=== PATIENT | female | born 2000 | race African-American/Black ===

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

== ENCOUNTER 2021-02-01 14:11 | Emergency (ER) | payer OTHER ==
[2021-02-01 14:35] VITALS: TEMP 98.1
[2021-02-01 15:34] LABS: Basophils % (A) 1 %; Eosinophils # (A) 0.1 k/uL (0-0.7); Eosinophils % (A) 1 %; HCT 46.4 % (34.0-46.0); HGB 15.4 gm/dL (11.4-16.0); Lymphocytes # (A) 2.8 k/uL (1.0-4.8); Lymphocytes % (A) 37 %; MCH 33.8 pg (25.0-35.0); MCHC 33.1 g/dL (31.0-37.0); MCV 102.1 fL (80.0-100.0); Macrocytosis Slight; Mean Platelet Volume 7.9; Monocytes # (A) 0.4 k/uL (0-1.0); Monocytes % (A) 6 %; Neutrophils % (A) 53 %; Platelet Count 244 k/uL (150-450); RBC 4.54 m/uL (3.80-5.40); RDW 12.6 % (11.5-15.5); WBC 7.6 k/uL (4.0-11.0)
[2021-02-01 15:43] LABS: ALT 14 U/L (4-34); AST 21 U/L (14-36); African American GFR (CKD) >90 (>60 ml/min/1.73 sqM); Albumin 4.4 g/dL (3.5-5.0); Alkaline Phosphatase 61 U/L (38-126); Amylase 92 U/L (30-110); Anion Gap 9 mmol/L; Blood Urea Nitrogen 11 mg/dL (7-17); Calcium 9.7 mg/dL (8.4-10.2); Carbon Dioxide 24 mmol/L (22-30); Chloride 104 mmol/L (98-107); Glucose 77 mg/dL (74-99); Lipase 79 U/L (23-300); Magnesium 1.8 mg/dL (1.6-2.3); Non-African American GFR(CKD) >90 (>60 ml/min/1.73 sqM); Potassium 3.9 mmol/L (3.5-5.1); Sodium 137 mmol/L (137-145); Total Bilirubin 1.3 mg/dL (0.2-1.3); Total Protein 7.3 g/dL (6.3-8.2)
[2021-02-01 16:21] LABS: Appearance,Urine Cloudy (Clear); Bacteria,Urine Rare /hpf; Bilirubin,Urine Negative (Negative); Blood,Urine Small (Negative); Color,Urine Yellow; Glucose,Urine (UA) Negative (Negative); Ketones,Urine 1+ (Negative); Leukocyte Esterase,Urine Negative (Negative); Mucus,Urine Many /hpf; Nitrite,Urine Negative (Negative); PH, Urine 6.5 (5.0-8.0); Protein,Urine Trace (Negative); RBC,Urine <1 /hpf (0-5); Specific Gravity,Urine 1.029 (1.001-1.035); Squamous Epithelial Cell,Urine 16 /hpf (0-4); WBC,Urine 3 /hpf (0-5)
--- NOTE | 2021-02-01 16:53 | ED ---
General Adult HPI - General Chief complaint: Abdominal Pain Stated complaint: R side pain Time Seen by Provider: 02/01/21 14:44 Source: patient, RN notes reviewed Mode of arrival: ambulatory Limitations: no limitations - History of Present Illness Initial comments: 19-year-old female presents to the emergency room for a chief complaint of numbness. Patient states that she is to have abdominal pain and left upper quadrant. Patient was seen by [facility]. Patient states the pain has since resolved however she now has numbness over her abdomen. She also has numbness in her mouth and of both great toes of her feet. Patient denies a ny weakness. Denies any difficulty talking. Denies headaches.Patient has no other complaints at this time including shortness of breath, chest pain, abdominal pain, nausea or vomiting, headache, or visual changes. - Related Data Home Medications Medication Instructions Recorded Confirmed Citalopram Hydrobromide 40 mg PO DAILY@1300 05/02/19 10/19/19 [Citalopram HBr] Omeprazole [PriLOSEC] 40 mg PO DAILY PRN 05/02/19 10/19/19 Etonogestrel/Ethinyl Estradiol 1 each VG DIRECTED 10/19/19 10/19/19 [Nuvaring Vaginal Ring] Multivitamin [Multivitamins Adult 4 each PO DAILY 10/19/19 10/19/19 Gummies] busPIRone HCL 10 mg PO DAILY@1300 10/19/19 10/19/19 Previous Rx's Medication Instructions Recorded Cyclobenzaprine [Flexeril] 5 mg PO BID #10 tablet 12/14/20 Ibuprofen [Motrin] 400 mg PO Q6HR PRN #30 tab 12/14/20 Allergies Allergy/AdvReac Type Severity Reaction Status Date / Time No Known Allergies Allergy Verified 12/14/20 14:03 Review of Systems ROS Statement: Those systems with pertinent positive or pertinent negative responses have been documented in the HPI. ROS Other: All systems not noted in ROS Statement are negative. Past Medical History Past Medical History: Blood Disorder Additional Past Medical History / Comment(s): Hx anemia. H-pylori 04/2019. Abd pain, Nausea, constipation. Scrapes on arms, hands, "I pick at my skin." History of Any Multi-Drug Resistant Organisms: None Reported Past Surgical History: Tonsillectomy Past Anesthesia/Blood Transfusion Reactions: No Reported Reaction Past Psychological History: Anxiety, Depression Smoking Status: Vaper Past Alcohol Use History: None Reported Past Drug Use History: Marijuana - Past Family History Mother Additional Family Medical History / Comment(s): Brain aneurysm General Exam Limitations: no limitations General appearance: alert, in no apparent distress Head exam: Present: atraumatic Eye exam: Present: normal appearance, PERRL, EOMI. Absent: scleral icterus, conjunctival injection ENT exam: Present: normal exam, mucous membranes moist Neck exam: Present: normal inspection, full ROM. Absent: tenderness Respiratory exam: Present: normal lung sounds bilaterally. Absent: respiratory distress, wheezes Cardiovascular Exam: Present: regular rate, normal rhythm, normal heart sounds GI/Abdominal exam: Present: soft, normal bowel sounds. Absent: distended, tenderness Neurological exam: Present: alert, oriented X3, normal gait Expanded Patient oriented to: Present: person, place, time Speech: Present: fluid speech Cranial nerves: EOM's Intact: Normal, Tongue Deviation: Normal, Facial Sensation: Normal Upper motor neuron: Pronator Drift: Normal Sensory exam: Upper Extremity Light Touch: Normal, Upper Extremity Pin Prick: Normal, Lower Extremity Light Touch: Normal, Lower Extremity Pin Prick: Normal Motor strength exam: RUE: 5, LUE: 5, RLE: 5, LLE: 5 Eye Response: (4) open spontaneously Motor Response: (6) obeys commands Verbal Response: (5) oriented [place] Total: 15 Course Vital Signs 02/01/21 14:31 Temperature 98.1 F Pulse Rate 86 Respiratory 18 Rate Blood Pressure 103/67 O2 Sat by Pulse 99 Oximetry Medical Decision Making - Medical Decision Making Vitals are stable. Patient presents for tingling of the mouth abdomen and great toes. Patient denies any weakness in any extremities. Strength 5 out of 5 in bilateral upper and lower extremities. No facial palsy. Laboratory evaluation was obtained to check for electrolyte abnormalities which were normal. At this time patient likely experiencing paresthesias. Recommend that she follow up with her doctor as she is stable for discharge home. She should return here for any worsening symptoms. - Lab Data Result diagrams: 02/01/21 15:27 02/01/21 15:27 Lab Results 02/01/21 02/01/21 02/01/21 Range/Units 15:27 15:27 15:27 WBC 7.6 (4.0-11.0) k/uL RBC 4.54 (3.80-5.40) m/uL Hgb 15.4 (11.4-16.0) gm/dL Hct 46.4 H (34.0-46.0) % MCV 102.1 H (80.0-100.0) fL MCH 33.8 (25.0-35.0) pg MCHC 33.1 (31.0-37.0) g/dL RDW 12.6 (11.5-15.5) % Plt Count 244 (150-450) k/uL MPV 7.9 Neutrophils % 53 % Lymphocytes % 37 % Monocytes % 6 % Eosinophils % 1 % Basophils % 1 % Neutrophils # 4.0 (1.3-7.7) k/uL Lymphocytes # 2.8 (1.0-4.8) k/uL Monocytes # 0.4 (0-1.0) k/uL Eosinophils # 0.1 (0-0.7) k/uL Basophils # 0.0 (0-0.2) k/uL Macrocytosis Slight Sodium (137-145) mmol/L Potassium (3.5-5.1) mmol/L Chloride (98-107) mmol/L Carbon Dioxide (22-30) mmol/L Anion Gap mmol/L BUN (7-17) mg/dL Creatinine (0.52-1.04) mg/dL Est GFR (CKD-EPI)AfAm (>60 ml/min/1.73 sqM) Est GFR (CKD-EPI)NonAf (>60 ml/min/1.73 sqM) Glucose (74-99) mg/dL Calcium (8.4-10.2) mg/dL Magnesium (1.6-2.3) mg/dL Total Bilirubin (0.2-1.3) mg/dL AST (14-36) U/L ALT (4-34) U/L Alkaline Phosphatase (38-126) U/L Total Protein (6.3-8.2) g/dL Albumin (3.5-5.0) g/dL Amylase (30-110) U/L Lipase (23-300) U/L Urine Color Yellow Urine Appearance Cloudy H (Clear) Urine pH 6.5 (5.0-8.0) Ur Specific [place] 1.029 (1.001-1.035) Urine Protein Trace H (Negative) Urine Glucose (UA) Negative (Negative) Urine Ketones 1+ H (Negative) Urine Blood Small H (Negative) Urine Nitrite Negative (Negative) Urine Bilirubin Negative (Negative) Urine Urobilinogen 2.0 (<2.0) mg/dL Ur Leukocyte Esterase Negative (Negative) Urine RBC <1 (0-5) /hpf Urine WBC 3 (0-5) /hpf Ur Squamous Epith Cells 16 H (0-4) /hpf Urine Bacteria Rare H (None) /hpf Urine Mucus Many H (None) /hpf Urine HCG, Qual Not Detected (Not Detectd) 02/01/21 Range/Units 15:27 WBC (4.0-11.0) k/uL RBC (3.80-5.40) m/uL Hgb (11.4-16.0) gm/dL Hct (34.0-46.0) % MCV (80.0-100.0) fL MCH (25.0-35.0) pg MCHC (31.0-37.0) g/dL RDW (11.5-15.5) % Plt Count (150-450) k/uL MPV Neutrophils % % Lymphocytes % % Monocytes % % Eosinophils % % Basophils % % Neutrophils # (1.3-7.7) k/uL Lymphocytes # (1.0-4.8) k/uL Monocytes # (0-1.0) k/uL Eosinophils # (0-0.7) k/uL Basophils # (0-0.2) k/uL Macrocytosis Sodium 137 (137-145) mmol/L Potassium 3.9 (3.5-5.1) mmol/L Chloride 104 (98-107) mmol/L Carbon Dioxide 24 (22-30) mmol/L Anion Gap 9 mmol/L BUN 11 (7-17) mg/dL Creatinine 0.64 (0.52-1.04) mg/dL Est GFR (CKD-EPI)AfAm >90 (>60 ml/min/1.73 sqM) Est GFR (CKD-EPI)NonAf >90 (>60 ml/min/1.73 sqM) Glucose 77 (74-99) mg/dL Calcium 9.7 (8.4-10.2) mg/dL Magnesium 1.8 (1.6-2.3) mg/dL Total Bilirubin 1.3 (0.2-1.3) mg/dL AST 21 (14-36) U/L ALT 14 (4-34) U/L Alkaline Phosphatase 61 (38-126) U/L Total Protein 7.3 (6.3-8.2) g/dL Albumin 4.4 (3.5-5.0) g/dL Amylase 92 (30-110) U/L Lipase 79 (23-300) U/L Urine Color Urine Appearance (Clear) Urine pH (5.0-8.0) Ur Specific [place] (1.001-1.035) Urine Protein (Negative) Urine Glucose (UA) (Negative) Urine Ketones (Negative) Urine Blood (Negative) Urine Nitrite (Negative) Urine Bilirubin (Negative) Urine Urobilinogen (<2.0) mg/dL Ur Leukocyte Esterase (Negative) Urine RBC (0-5) /hpf Urine WBC (0-5) /hpf Ur Squamous Epith Cells (0-4) /hpf Urine Bacteria (None) /hpf Urine Mucus (None) /hpf Urine HCG, Qual (Not Detectd) Disposition Clinical Impression: Paresthesia Disposition: HOME SELF-CARE Condition: Good Instructions (If sedation given, give patient instructions): Paresthesia (ED) Additional Instructions: Please follow up with your doctor in one to 2 days. Return to the emergency room for any worsening symptoms. Is patient prescribed a controlled substance at d/c from ED?: No Referrals: Carlyle Dutton DO [Primary Care Provider] - 1-2 days Time of Disposition: 16:52
[2021-02-01 17:30] VITALS: BP 106/54; PULSE 77; RESP 20
== END 2021-02-01 17:30 | disposition home or self-care (01) ==
LOC: EC 14:11
DX: R20.2 Paresthesia of skin (principal); R10.12 Left upper quadrant pain; R20.0 Anesthesia of skin; F32.9 Major depressive disorder, single episode, unspecified; F41.9 Anxiety disorder, unspecified; F12.90 Cannabis use, unspecified, uncomplicated; F17.290 Nicotine dependence, other tobacco product, uncomplicated; Z79.1 Long term (current) use of non-steroidal anti-inflammatories (NSAID); Z79.3 Long term (current) use of hormonal contraceptives; Z79.899 Other long term (current) drug therapy
CPT/HCPCS: 36415; 80053; 81001; 81025; 82150; 83690; 83735; 85025; 99284

== ENCOUNTER 2021-02-12 15:08 | Emergency (ER) | payer OTHER ==
[2021-02-12 15:34] VITALS: BP 122/77; PULSE 105; RESP 18; TEMP 98.5
[2021-02-12] MEDS ORDERED: BACITRACIN OINT 1 EACH PACKET TOPICAL ONE (16:08)
[2021-02-12] MEDS ORDERED: LIDOCAINE 1% INJ 10MG/ML (20 ML MDV) SQ ONE (16:08)
--- NOTE | 2021-02-12 17:22 | ED ---
Wound/Laceration HPI - General Chief Complaint: Wound/Laceration Stated Complaint: IHS R Finger Lac Time Seen by Provider: 02/12/21 15:36 Source: patient Mode of arrival: ambulatory Limitations: no limitations - History of Present Illness Initial Comments: Patient is a 20-year-old female presenting to emergency Department with complaints of a laceration to her right ring finger that happened a few hours prior to arrival. 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 She has a laceration noted to the dorsal aspect of the right ring finger. There is bleeding when bandage is taken off, it is controlled with pressure in the bandage. She denies history of blood thinners. Her tetanus vaccine is up-to-date. She has no further complaints. - Related Data Home Medications Medication Instructions Recorded Confirmed Citalopram Hydrobromide 40 mg PO DAILY@1300 05/02/19 10/19/19 [Citalopram HBr] Omeprazole [PriLOSEC] 40 mg PO DAILY PRN 05/02/19 10/19/19 Etonogestrel/Ethinyl Estradiol 1 each VG DIRECTED 10/19/19 10/19/19 [Nuvaring Vaginal Ring] Multivitamin [Multivitamins Adult 4 each PO DAILY 10/19/19 10/19/19 Gummies] busPIRone HCL 10 mg PO DAILY@1300 10/19/19 10/19/19 Previous Rx's Medication Instructions Recorded Cyclobenzaprine [Flexeril] 5 mg PO BID #10 tablet 12/14/20 Ibuprofen [Motrin] 400 mg PO Q6HR PRN #30 tab 12/14/20 Allergies Allergy/AdvReac Type Severity Reaction Status Date / Time No Known Allergies Allergy Verified 02/12/21 15:34 Review of Systems ROS Statement: Those systems with pertinent positive or pertinent negative responses have been documented in the HPI. ROS Other: All systems not noted in ROS Statement are negative. Past Medical History Past Medical History: Blood Disorder Additional Past Medical History / Comment(s): Hx anemia. H-pylori 04/2019. Abd pain, Nausea, constipation. Scrapes on arms, hands, "I pick at my skin." History of Any Multi-Drug Resistant Organisms: None Reported Past Surgical History: Tonsillectomy Past Anesthesia/Blood Transfusion Reactions: No Reported Reaction Past Psychological History: Anxiety, Depression Smoking Status: Vaper Past Alcohol Use History: None Reported Past Drug Use History: Marijuana - Past Family History Mother Additional Family Medical History / Comment(s): Brain aneurysm General Exam - General Exam Comments Initial Comments: GENERAL: Patient is well-developed and well-nourished. Patient is nontoxic and in no acute distress. HEAD: Atraumatic, normocephalic. EYES: Pupils equal round and reactive to light, extraocular movements intact, sclera anicteric, conjunctiva are normal. Eyelids were unremarkable. LUNGS: Unlabored respirations. Breath sounds clear to auscultation bilaterally and equal. No wheezes rales or rhonchi. HEART: Regular rate and rhythm without murmurs, rubs or gallops. ABDOMEN: Soft, nontender, normoactive bowel sounds. MUSCULOSKELETAL: Patient has full range of motion including full extension and flexion of her right fingers. His neurovascular intact. Sensation is equal and bilateral, all fingers. No clubbing or cyanosis. NEUROLOGICAL: Patient is alert and oriented x 3. SKIN: Warm, Dry, normal turgor. Patient has a 3 cm laceration to the dorsal aspect of the right ring finger, over the IP joint. There is active bleeding when bandage is removed, it is controlled with pressure and bandage. Limitations: no limitations Course Vital Signs 02/12/21 15:31 Temperature 98.5 F Pulse Rate 105 H Respiratory 18 Rate Blood Pressure 122/77 O2 Sat by Pulse 98 Oximetry Procedures - Laceration Laceration #1 Consent Obtained: verbal consent Indication: laceration Site: hand (Right ring finger, dorsal aspect) Size (cm): 3 Description: linear Depth: simple, single layer Anesthetic Used: lidocaine 1% Anesthesia Technique: local infiltration Amount (mls): 3 Pre-repair: irrigated extensively Type of Sutures: nylon Size of Sutures: 5-0 Number of Sutures: 7 Technique: simple, interrupted Patient Tolerated Procedure: well Medical Decision Making - Medical Decision Making Patient is a 20-year-old female here with a 3 cm laceration to the dorsal aspect of the right ring finger, she did this at work about 2 hours prior to arrival. Tetanus vaccine is up-to-date. Patient's wound was cleaned, closed with 7, 5-0 sutures. She tolerated procedure well. Patient is stable for discharge. She has sutures removed in 7-10 days. She is to avoid heavy lifting/gripping. Case discussed with Dr. Gregorio. Disposition Clinical Impression: Laceration of right ring finger Disposition: HOME SELF-CARE Condition: Stable Instructions (If sedation given, give patient instructions): Care For Your Stitches (ED) Additional Instructions: Please return to the Emergency Department if symptoms worsen or any other concerns. Keep bandage in place until tomorrow. You may wash your hands as normal with mild soap and water. Stitches need to be removed in 7-10 days, you may come back to the ER for removal. No heavy lifting or gripping with right hand. Is patient prescribed a controlled substance at d/c from ED?: No Referrals: Carlyle Dutton DO [Primary Care Provider] - 1-2 days Time of Disposition: 17:21
== END 2021-02-12 17:28 | disposition home or self-care (01) ==
LOC: EC 15:08
DX: S61.214A Laceration without foreign body of right ring finger without damage to nail, initial encounter (principal); F41.9 Anxiety disorder, unspecified; F32.9 Major depressive disorder, single episode, unspecified; F17.290 Nicotine dependence, other tobacco product, uncomplicated; F12.90 Cannabis use, unspecified, uncomplicated; Z90.89 Acquired absence of other organs; W26.8XXA Contact with other sharp object(s), not elsewhere classified, initial encounter
CPT/HCPCS: 99282; 12002; J2001

== ENCOUNTER → 2022-06-29 | Outpatient (CLI) | payer OTHER ==
--- NOTE | 2022-06-30 09:39 | US ---
EXAMINATION TYPE: US pelvic complete DATE OF EXAM: 06/29/2022 COMPARISON: NONE CLINICAL HISTORY: 22-year-old female N83.291 OVARIAN CYST RT SIDE. Patient states going to a [facility] x 2 weeks ago and right ovarian cyst was visualized. No pain. R/O other cysts. TECHNIQUE: Transabdominal sonographic images of the pelvis were acquired. Transvaginal sonographic i mages were deferred due to menstrual status Date of LMP: 06/27/2022, G0 FINDINGS: EXAM MEASUREMENTS: Uterus: 7.0 x 4.4 x 3.2 cm Endometrial Stripe: 0.3 cm Right Ovary: 4.3 x 4.6 x 3.3 cm for volume of 34.2 mL Left Ovary: 3.9 x 1.7 x 1.9 cm for volume of 5.0 mL 1. Uterus: Anteverted and otherwise wnl 2. Endometrium: wnl 3. Right Ovary: Either 2 adjacent cysts or a septated cyst, largest = 2.7 x 3.7 x 3.1 cm with photography intern al echoes. The second cystic locule measures 2.5 x 1.7 x 1.4 cm 4. Left Ovary: Multiple tiny follicles seen 5. Bilateral Adnexa: wnl 6. Posterior cul-de-sac: no free fluid IMPRESSION: 1. Either 2 adjacent cysts or a mildly complex, septated cyst of the right ovary, largest cystic locu le measuring 3.7 cm. Follow-up in 6-8 weeks to reassess. If the finding persists, a cystic epithelial ovarian neoplasm would not be excluded from the differential. 2. Numerous small follicles within the left ovary.
== END | disposition home or self-care (01) ==
LOC: RADUSWWP 16:19
PROVIDERS: ATTEND Family Medicine
DX: N83.291 Other ovarian cyst, right side (principal)
CPT/HCPCS: 76856

== ENCOUNTER → 2023-03-25 | Outpatient (CLI) | payer OTHER ==
--- NOTE | 2023-03-25 08:08 | US ---
EXAMINATION TYPE: US abdomen complete DATE OF EXAM: 03/25/2023 COMPARISON: NONE CLINICAL INDICATION: Female, 22 years old with history of R10.9 ABD PAIN; nausea x a few weeks, 1 epi sode of vomiting, bloating. Pt. has gastritis TECHNIQUE: Multiple sonographic images of the abdomen are obtained. 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 The intrahepatic portion of the IVC and proximal abdominal aorta are within normal limits. There is no evidence of cholelithiasis. Common bile duct is unremarkable. The visu alized portions of the pancreas are homogenous. The spleen is unremarkable. Kidneys are symmetric a nd free of hydronephrosis. No renal lesions are seen. IMPRESSION: No evidence for acute process.
== END | disposition home or self-care (01) ==
LOC: RADUSWWP 06:54
PROVIDERS: ATTEND Family Medicine
DX: R10.9 Unspecified abdominal pain (principal); R11.2 Nausea with vomiting, unspecified
CPT/HCPCS: 76700

== ENCOUNTER 2024-12-21 06:50 | Emergency (ER) | payer OTHER ==
[2024-12-21 07:05] VITALS: RESP 16; TEMP 98
--- NOTE | 2024-12-21 07:24 | ED ---
General Adult HPI - General Chief complaint: Abdominal Pain Stated complaint: Abd Pain Time Seen by Provider: 12/21/24 07:00 Source: patient, RN notes reviewed Mode of arrival: ambulatory Limitations: no limitations - History of Present Illness Initial comments: This is a 24-year-old female with no pertinent past medical conditions presenting to emergency room with complaints of right lower pelvic pain that has been ongoing over the past 6 days. Patient states that on she had light vaginal spotting and she had 3 positive at-home tests on Wednesday. States that she has been having right lower pelvic pain since Wednesday that has been worsening over the past day. She denies vaginal bleeding, vaginal discharge, dysuria, hematuria, increased urinary frequency or urgency, diarrhea or constipation. last menstrual period reported on 11/17/24 - Related Data Home Medications Medication Instructions Recorded Confirmed Citalopram Hydrobromide 40 mg PO DAILY@1300 05/02/19 10/19/19 [Citalopram HBr] Omeprazole [PriLOSEC] 40 mg PO DAILY PRN 05/02/19 10/19/19 Etonogestrel/Ethinyl Estradiol 1 each VG DIRECTED 10/19/19 10/19/19 [Nuvaring Vaginal Ring] Multivitamin [Multivitamins Adult 4 each PO DAILY 10/19/19 10/19/19 Gummies] busPIRone HCL 10 mg PO DAILY@1300 10/19/19 10/19/19 Previous Rx's Medication Instructions Recorded Cyclobenzaprine [Flexeril] 5 mg PO BID #10 tablet 12/14/20 Ibuprofen [Motrin] 400 mg PO Q6HR PRN #30 tab 12/14/20 Allergies Allergy/AdvReac Type Severity Reaction Status Date / Time No Known Allergies Allergy Verified 12/21/24 07:04 Review of Systems ROS Statement: Those systems with pertinent positive or pertinent negative responses have been documented in the HPI. ROS Other: All systems not noted in ROS Statement are negative. Past Medical History Past Medical History: Blood Disorder Additional Past Medical History / Comment(s): Hx anemia. H-pylori 04/2019. Abd pain, Nausea, constipation. Scrapes on arms, hands, "I pick at my skin." History of Any Multi-Drug Resistant Organisms: None Reported Past Surgical History: Tonsillectomy Past Anesthesia/Blood Transfusion Reactions: No Reported Reaction Past Psychological History: Anxiety, Depression Smoking Status: Vaper Past Alcohol Use History: None Reported Past Drug Use History: Marijuana - Past Family History Mother Additional Family Medical History / Comment(s): Brain aneurysm General Exam Limitations: no limitations Respiratory exam: Present: normal lung sounds bilaterally. Absent: respiratory distress, wheezes, rales, rhonchi, stridor Cardiovascular Exam: Present: regular rate, normal rhythm, normal heart sounds. Absent: systolic murmur, diastolic murmur, rubs, gallop, clicks GI/Abdominal exam: Present: soft, tenderness (right lower pelvic to palpation), normal bowel sounds. Absent: distended, guarding, rebound, rigid Extremities exam: Present: normal inspection, full ROM, normal capillary refill. Absent: tenderness, pedal edema, joint swelling, calf tenderness Back exam: Present: normal inspection. Absent: CVA tenderness (R), CVA tenderness (L) Course Vital Signs 12/21/24 12/21/24 07:00 09:39 Temperature 98 F 98 F Pulse Rate 89 86 Respiratory 16 16 Rate Blood Pressure 118/76 112/74 O2 Sat by Pulse 100 100 Oximetry Medical Decision Making - Medical Decision Making Was pt. sent in by a medical professional or institution (, PA, FISHING ROD ASSEMBLER, urgent care, hospital, or fpc...) When possible be specific @ -No Did you speak to anyone other than the patient for history (EMS, parent, family, police, friend...)? What history was obtained from this source @ -No Did you review nursing and triage notes (agree or disagree)? Why? @ -I reviewed and agree with nursing and triage notes Were old charts reviewed (outside hosp., previous admission, EMS record, old EKG, old radiological studies, urgent care reports/EKG's, fpc records)? Report findings @ -No old charts were reviewed Differential Diagnosis (chest pain, altered mental status, abdominal pain women, abdominal pain men, vaginal bleeding, weakness, fever, dyspnea, syncope, headache, dizziness, GI bleed, back pain, seizure, CVA, palpatations, mental health, musculoskeletal)? @ -Differential Abdominal Pain Women: Appendicitis, Cholecystitis, diverticulosis, ischemic bowel, pancreatitis, hepatitis, UTI, gastroenteritis, AAA, incarcerated hernia, bowel obstruction, constipation, inflammatory bowel, hepatitis, peptic ulcer disease, splenic infarction, perforated viscus, vulvitis, ovarian torsion, PID, kidney stone, placenta abruption, this is not meant to be an all-inclusive list EKG interpreted by me (3pts min.). @ none X-rays interpreted by me (1pt min.). @ -None done CT interpreted by me (1pt min.). @ -None done U/S interpreted by me (1pt. min.). @ -Transabdominal ultrasound reveals small and I like intrauterine cystic structure without evidence of yolk sac or pole thought to represent early gestational sac however cannot rule out abnormal intrauterine or ectopic. What testing was considered but not performed or refused? (CT, X-rays, U/S, labs)? Why? @ -None What meds were considered but not given or refused? Why? @ -None Did you discuss the management of the patient with other professionals (professionals i.e. , PA, FISHING ROD ASSEMBLER, lab, RT, psych nurse, family welfare social work professor, assembly line brazer, teacher, security flex officer, telephonic case manager)? Give summary @ -No Was smoking cessation discussed for >3mins.? @ -No Was critical care preformed (if so, how long)? @ -No Were there social determinants of health that impacted care today? How? (Homelessness, low income, unemployed, alcoholism, drug addiction, transportation, low edu. Level, literacy, decrease access to med. care, residential, rehab)? @ -No Was there de-escalation of care discussed even if they declined (Discuss DNR or withdrawal of care, Hospice)? DNR status @ -No What co-morbidities impacted this encounter? (DM, HTN, Smoking, COPD, CAD, Cancer, CVA, ARF, Chemo, Hep., AIDS, mental health diagnosis, sleep apnea, morbid obesity)? @ -None Was patient admitted / discharged? Hospital course, mention meds given and route, prescriptions, significant lab abnormalities, going to OR and other pertinent info. @ -discharged. 24 year old female presenting to the emergency department complaints of right lower pelvic pain and positive test last week. Patient has tenderness to the right lower pelvic area, no tenderness over McBurney's point and negative psoas sign. Patient's labs reveal a hCG quantitative level of 1032. Urinalysis reveals no signs of infection. Ultrasound at this time is essentially conclusive revealing a intrauterine cystic structure without evidence of yolk sac or pole. Patient is provided with a prescription to repeat hCG testing in 48 hours recommend repeat ultrasound in 7 to 10 days. Patient provided with OB follow-up. Patient's blood type is O+. Return parameters discussed. Case discussed with my attending Dr. Sheppard. Undiagnosed new problem with uncertain prognosis? @ -No Drug Therapy requiring intensive monitoring for toxicity (Heparin, Nitro, Insulin, Cardizem)? @ -No Were any procedures done? @ -No Diagnosis/symptom? @ -early , pelvic pain Acute, or Chronic, or Acute on Chronic? @ -acute Uncomplicated (without systemic symptoms) or Complicated (systemic symptoms)? @ -uncomplicated Side effects of treatment? @ -No Exacerbation, Progression, or Severe Exacerbation? @ -No Poses a threat to life or bodily function? How? (Chest pain, USA, NH, pneumonia, PE, COPD, DKA, ARF, appy, cholecystitis, CVA, Diverticulitis, Homicidal, Suicidal, threat to staff... and all critical care pts) @ -No - Lab Data Result diagrams: 12/21/24 07:26 12/21/24 07:26 Lab Results 12/21/24 12/21/24 12/21/24 Range/Units 07:17 07:26 07:26 WBC 11.28 H (4.50-10.00) 10*3/uL RBC 3.99 L (4.10-5.20) 10*6/uL Hgb 13.1 (12.0-15.0) g/dL Hct 37.7 (37.2-46.3) % MCV 94.5 (80.0-97.0) fL MCH 32.8 H (27.0-32.0) pg MCHC 34.7 (32.0-37.0) g/dL Plt Count 287 (140-440) 10*3/uL MPV 10.1 (9.5-12.2) fL Immature Gran % (Auto) 0.4 % Neutrophils % 69.1 % Lymphocytes % 20.6 % Monocytes % 8.8 % Eosinophils % 0.7 % Basophils % 0.4 % Immature Gran # 0.04 (0.00-0.04) 10*3/uL Neutrophils # 7.80 H (1.80-7.70) 10*3/uL Lymphocytes # 2.32 (0.90-5.00) 10*3/uL Monocytes # 0.99 (0.20-1.00) 10*3/uL Eosinophils # 0.08 (0.04-0.35) 10*3/uL Basophils # 0.05 (0.00-0.10) 10*3/uL Sodium 138 (137-145) mmol/L Potassium 3.6 (3.5-5.1) mmol/L Chloride 106 (98-107) mmol/L Carbon Dioxide 24 (22-30) mmol/L Anion Gap 8 mmol/L BUN 14 (7-17) mg/dL Creatinine 0.58 (0.52-1.04) mg/dL Est GFR (CKD-EPI)AfAm >90 (>60 ml/min/1.73 sqM) Est GFR (CKD-EPI)NonAf >90 (>60 ml/min/1.73 sqM) Glucose 87 (74-99) mg/dL Calcium 8.9 (8.4-10.2) mg/dL Total Bilirubin 0.8 (0.2-1.3) mg/dL AST 19 (14-36) U/L ALT 12 (4-34) U/L Alkaline Phosphatase 56 (38-126) U/L Total Protein 6.9 (6.3-8.2) g/dL Albumin 4.1 (3.5-5.0) g/dL HCG, Quant 1032.5 mIU/mL Urine Color Colorless Urine Appearance Cloudy H (Clear) Urine pH 5.5 (5.0-8.0) Ur Specific [place] 1.015 (1.001-1.035) Urine Protein Negative (Negative) Urine Glucose (UA) Negative (Negative) Urine Ketones Negative (Negative) Urine Blood Negative (Negative) Urine Nitrite Negative (Negative) Urine Bilirubin Negative (Negative) Urine Urobilinogen <2.0 (<2.0) mg/dL Ur Leukocyte Esterase Negative (Negative) Urine RBC <1 (0-5) /hpf Urine WBC 2 (0-5) /hpf Ur Squamous Epith Cells 4 (0-4) /hpf Urine Bacteria Occasional H (None) /hpf Urine Mucus Rare H (None) /hpf Blood Type Blood Type Confirm Blood Type Recheck Bld Type Recheck Status 07/17/25 07/17/25 Range/Units 07:32 07:32 WBC (4.50-10.00) 10*3/uL RBC (4.10-5.20) 10*6/uL Hgb (12.0-15.0) g/dL Hct (37.2-46.3) % MCV (80.0-97.0) fL MCH (27.0-32.0) pg MCHC (32.0-37.0) g/dL Plt Count (140-440) 10*3/uL MPV (9.5-12.2) fL Immature Gran % (Auto) % Neutrophils % % Lymphocytes % % Monocytes % % Eosinophils % % Basophils % % Immature Gran # (0.00-0.04) 10*3/uL Neutrophils # (1.80-7.70) 10*3/uL Lymphocytes # (0.90-5.00) 10*3/uL Monocytes # (0.20-1.00) 10*3/uL Eosinophils # (0.04-0.35) 10*3/uL Basophils # (0.00-0.10) 10*3/uL Sodium (137-145) mmol/L Potassium (3.5-5.1) mmol/L Chloride (98-107) mmol/L Carbon Dioxide (22-30) mmol/L Anion Gap mmol/L BUN (7-17) mg/dL Creatinine (0.52-1.04) mg/dL Est GFR (CKD-EPI)AfAm (>60 ml/min/1.73 sqM) Est GFR (CKD-EPI)NonAf (>60 ml/min/1.73 sqM) Glucose (74-99) mg/dL Calcium (8.4-10.2) mg/dL Total Bilirubin (0.2-1.3) mg/dL AST (14-36) U/L ALT (4-34) U/L Alkaline Phosphatase (38-126) U/L Total Protein (6.3-8.2) g/dL Albumin (3.5-5.0) g/dL HCG, Quant mIU/mL Urine Color Urine Appearance (Clear) Urine pH (5.0-8.0) Ur Specific [place] (1.001-1.035) Urine Protein (Negative) Urine Glucose (UA) (Negative) Urine Ketones (Negative) Urine Blood (Negative) Urine Nitrite (Negative) Urine Bilirubin (Negative) Urine Urobilinogen (<2.0) mg/dL Ur Leukocyte Esterase (Negative) Urine RBC (0-5) /hpf Urine WBC (0-5) /hpf Ur Squamous Epith Cells (0-4) /hpf Urine Bacteria (None) /hpf Urine Mucus (None) /hpf Blood Type O Positive Blood Type Confirm O Positive Blood Type Recheck No Previous Record Bld Type Recheck Status CABO Indicated Disposition Clinical Impression: Early stage of Disposition: HOME SELF-CARE Condition: Stable Instructions (If sedation given, give patient instructions): Abdominal Pain in (ED) Additional Instructions: Please return to the Emergency Department if symptoms worsen or any other concerns. Please repeat serum quantitative hCG testing in 48 hours. It is recommended that you have a repeat ultrasound in approximately 7 to 10 days for further evaluation of early . Please contact provided physician for follow-up. Is patient prescribed a controlled substance at d/c from ED?: No Referrals: Carlyle Dutton DO [Primary Care Provider] - 1-2 days Dalton Stein MD [STAFF PHYSICIAN] - 1-2 days Time of Disposition: 09:21
[2024-12-21 07:33] LABS: Basophils # (A) 0.05 10*3/uL (0.00-0.10); Basophils % (A) 0.4 %; Eosinophils # (A) 0.08 10*3/uL (0.04-0.35); Eosinophils % (A) 0.7 %; HCT 37.7 % (37.2-46.3); HGB 13.1 g/dL (12.0-15.0); Lymphocytes # (A) 2.32 10*3/uL (0.90-5.00); Lymphocytes % (A) 20.6 %; MCH 32.8 pg (27.0-32.0); MCHC 34.7 g/dL (32.0-37.0); MCV 94.5 fL (80.0-97.0); Monocytes # (A) 0.99 10*3/uL (0.20-1.00); Monocytes % (A) 8.8 %; Neutrophils # (A) 7.80 10*3/uL (1.80-7.70); Neutrophils % (A) 69.1 %; Platelet Count 287 10*3/uL (140-440); RBC 3.99 10*6/uL (4.10-5.20); RDW 12.1 % (11.5-14.5); WBC 11.28 10*3/uL (4.50-10.00)
[2024-12-21 07:35] LABS: Bacteria,Urine Occasional /hpf; Bilirubin,Urine Negative (Negative); Blood,Urine Negative (Negative); Color,Urine Colorless; Glucose,Urine (UA) Negative (Negative); Ketones,Urine Negative (Negative); Leukocyte Esterase,Urine Negative (Negative); Mucus,Urine Rare /hpf; Nitrite,Urine Negative (Negative); PH, Urine 5.5 (5.0-8.0); Protein,Urine Negative (Negative); RBC,Urine <1 /hpf (0-5); Specific Gravity,Urine 1.015 (1.001-1.035); Squamous Epithelial Cell,Urine 4 /hpf (0-4); Urobilinogen,Urine <2.0 mg/dL (<2.0); WBC,Urine 2 /hpf (0-5)
[2024-12-21 07:53] LABS: ALT 12 U/L (4-34); AST 19 U/L (14-36); African American GFR (CKD) >90 (>60 ml/min/1.73 sqM); Albumin 4.1 g/dL (3.5-5.0); Alkaline Phosphatase 56 U/L (38-126); Anion Gap 8 mmol/L; Blood Urea Nitrogen 14 mg/dL (7-17); Calcium 8.9 mg/dL (8.4-10.2); Carbon Dioxide 24 mmol/L (22-30); Chloride 106 mmol/L (98-107); Glucose 87 mg/dL (74-99); Non-African American GFR(CKD) >90 (>60 ml/min/1.73 sqM); Potassium 3.6 mmol/L (3.5-5.1); Sodium 138 mmol/L (137-145); Total Protein 6.9 g/dL (6.3-8.2)
[2024-12-21 08:10] LABS: HCG,Quantitative Serum 1032.5 mIU/mL
[2024-12-21] MEDS: ACETAMINOPHEN TAB 325 MG TAB PO STA (08:39)
--- NOTE | 2024-12-21 09:16 | US ---
EXAMINATION TYPE: Transabdominal DATE OF EXAM: 12/21/2024 8:42 AM COMPARISON: None relevant CLINICAL INDICATION: Female, 24 years old with history of +hcg, cramping; RLQ pain, HX rupture ovaria n cyst, patient denies any other signs, symptoms, or relevant history TECHNIQUE: Transvaginal (TV) and Transabdominal (TA) with grayscale and color Doppler imaging includi ng first trimester . FINDINGS: EXAM MEASUREMENTS: GESTATIONAL AGE / DATING Physician Established: Not yet established ( weeks/ days) EDC: Dates by LMP: (4 weeks/6 days) EDC: 08/24/2025 Dates by First Scan: No previous this is first scan ( weeks/ days) EDC: Dates by Current Scan for: (4 weeks/6 days) EDC: 08/24/2025 MATERNAL ANATOMY Uterus: 6.9 x 3.9 x 6.3 cm Right Ovary: 4.1 x 3.2 x 2.8 cm Left Ovary: 3.7 x 2.4 x 2.4 cm Post CDS / Adnexa: Fluid noted Presence of free fluid: Yes Presence of corpus luteal cyst: ? Right ovary vs hemorrhagic cyst. Presence of subchorionic bleed: Yes = 1.0 x 0.3 x 1.4 cm right uterine fundus GESTATION / SURVEY CRL: 0.17 (Too small to establish weeks/ days) Gestational Sac morphology: Normal Gestational Sac MSD: 0.40 (4 weeks/6 days) Yolk Sac (normal less than 6mm): Too early to visualize Cardiac Activity/Heart Rate: Too early to obtain bpm Rhythm: Normal IUP: ? pole seen within gestational sac vs artifact. Nuchal Translucency 10-14wks (normal less than 3mm): NA Age Appropriate Anatomy Cord Insertion: NA Limbs: NA Calvarium: NA Date of LMP: 11/17/2024 Beta HcG (if available): 1,032 IMPRESSION: Small anechoic intrauterine cystic structure without evidence for yolk sac or pole at this time . This is thought to represent an early gestational sac with a positive beta hCG of mIU/mL, however e ctopic and abnormal intrauterine cannot be ruled out based on this exam alone. Fo llow-up with pelvic ultrasound in 7-10 days and serial beta-hCG studies are recommended to en sure fu rther development of the fetus. [facility], , 12/21/2024 9:13 AM
[2024-12-21 09:42] VITALS: BP 112/74; PULSE 86
== END 2024-12-21 09:39 | disposition home or self-care (01) ==
LOC: EC 06:50
DX: O26.891 Other specified pregnancy related conditions, first trimester (principal); R10.31 Right lower quadrant pain; O99.331 Smoking (tobacco) complicating pregnancy, first trimester; F17.290 Nicotine dependence, other tobacco product, uncomplicated; Z3A.00 Weeks of gestation of pregnancy not specified
CPT/HCPCS: 36415; 76801; 76817; 80053; 81001; 84702; 85025; 86900; 86901; 99284